=== PATIENT | male | born 1985 | race Two or more races ===

== ENCOUNTER 2016-07-03 11:45 | Outpatient (CLI) | payer OTHER ==
--- NOTE | 2016-07-03 13:10 | Diagnostic Imaging Report ---
Indication: Neck Pain Findings: 3 views of the cervical spine were obtained. There is no acute fracture identified. Alignment is normal. The open-mouth odontoid view shows an intact dens and good alignment of the lateral masses with respect to the body of C2. There is no soft tissue swelling. Impression: Negative cervical spine examination.
== END 2016-07-03 13:00 | disposition home or self-care (01) ==
LOC: RAD 11:45
DX: M54.2 Cervicalgia (principal)
CPT/HCPCS: 72040